=== PATIENT | female | born 1990 | race Caucasian/White ===

== ENCOUNTER 2020-02-06 17:39 | Emergency (ER) | payer OTHER, SELFPAY ==
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
[2020-02-06 18:13] VITALS: BMI 30.4
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
[2020-02-06] MEDS: acetaminophen 500 mg Tablet 1000 MG PO (18:46)
== END 2020-02-06 19:14 | disposition home or self-care (01) ==
PROVIDERS: Emergency Provider Physician Assistant
DX: S13.4XXA Sprain of ligaments of cervical spine, initial encounter (principal); V53.6XXA Passenger in pick-up truck or van injured in collision with car, pick-up truck or van in traffic accident, initial encounter
CPT/HCPCS: 12345; 70450; 72125; 73562; 99281; 99283